=== PATIENT | female | born 1990 | race African-American/Black ===

== ENCOUNTER 2016-06-17 14:56 | Emergency (ER) | payer BC, OTHER ==
[2016-06-17 15:08] VITALS: BP 151/79; PULSE 108; TEMP 98; BMI 33.6
--- NOTE | 2016-06-17 17:59 | PDOC ---
History of Present Illness - General Chief Complaint: Shortness of Breath Stated Complaint: SOB Time Seen by Provider: 06/17/16 17:46 History Source: Patient Exam Limitations: No Limitations - History of Present Illness Initial Comments: 06/17/16 18:02 Agent is here with complaints of acute onset of shortness of breath. happens to her frequently, but today's episode seems to be much worse. has problems with postnasal drainage and symptoms appear to be worse while lying. On occasion feels is choking and wonders if this is part of her reason for waking with these "shortness of breath" episodes. is also been told had some mild panic disorder where these acute onset of shortness of breath have been associated. Has no history of cardiac disease, has never been evaluated for psychiatric or panic disorders, denies fever, ear or throat pain, denies cough. Has had no recent travel, does not take control, does not smoke or use drugs however is a social drinker 06/17/16 18:13 06/17/16 20:31 Timing/Duration: reports: just prior to arrival Severity: reports: moderate Possible Cause: Yes: occasional episodes ( has had multiple occasions of the same, has never had definitive diagnosis or treatment for same) Associated Symptoms: reports: denies symptoms, fever/chills Past History - Travel Traveled outside of the country in the last 30 days: No Close contact w/someone who was outside of country & ill: No - Past Medical History Allergies/Adverse Reactions: Allergies Allergy/AdvReac Type Severity Reaction Status Date / Time No Known Allergies Allergy Verified 06/17/16 15:05 Home Medications: Ambulatory Orders Albuterol Sulfate Inhaler - [Ventolin HFA Inhaler -] 2 inh PO Q4H PRN #1 inh Azithromycin [Zithromax Z-MASOOD (5 DAYS) -] 250 mg PO ASDIR #6 tablet 07/19/14 - Psycho/Social/Smoking Cessation Hx Anxiety: No Suicidal Ideation: No Smoking History: Never smoked Review of Systems - Review of Systems Able to Perform ROS?: Yes Is the patient limited Slovenian proficient: Yes Constitutional: Yes: Symptoms Reported, See HPI, Malaise HEENTM: Yes: Symptoms Reported, Nose Congestion, Difficulty Swallowing Respiratory: Yes: See HPI. No: Symptoms reported, Cough, Orthopnea, Shortness of Breath, Wheezing ABD/GI: Yes: See HPI. No: Symptoms Reported : Yes: See HPI. No: Symptoms Reported Musculoskeletal: Yes: See HPI Integumentary: Yes: See HPI. No: Symptoms Reported Neurological: Yes: See HPI. No: Symptoms reported, Headache, Numbness, Paresthesia Psychiatric: Yes: Anxiety (no medication) All Other Systems: Reviewed and Negative *Physical Exam - Vital Signs Last Vital Signs Temp Pulse Resp BP Pulse Ox 98 F 108 H 20 151/79 99 06/17/16 15:05 06/17/16 15:05 06/17/16 15:05 06/17/16 15:05 06/17/16 15:05 - Physical Exam General Appearance: Yes: Nourished, Appropriately Dressed. No: Apparent Distress HEENT: positive: URBANO, TMs Normal (congested but landmarks easily visualized), Nasal Congestion (the), Rhinorrhea. negative: Normal ENT Inspection, Pharynx Normal, Pharyngeal Erythema (has thick whitish clear posterior sinus drainage noted) Neck: positive: Tender, Supple. negative: Lymphadenopathy (R), Lymphadenopathy (L) Respiratory/Chest: positive: Lungs Clear, Normal Breath Sounds Cardiovascular: positive: Regular Rate Gastrointestinal/Abdominal: positive: Soft. negative: Normal Bowel Sounds, Tender Musculoskeletal: positive: Normal Inspection Extremity: positive: Normal Capillary Refill, Normal Inspection, Normal Range of Motion Integumentary: positive: Normal Color, Warm, Pale Neurologic: positive: ortho nurse II-XII NML intact, Fully Oriented, Normal Mood/Affect , Normal Response, Motor Strength 5/5 Progress Note - Progress Note Progress Note: Intermittent palpitations, spontaneous resolved. EKG negative, normal sinus rhythm without any ischemic changes or arrhythmias noted. Urine hCG is positive , patient notified and will follow-up with her PMD. Beta hCG pending but patient wish to stay for results *DC/Admit/Observation/Transfer Diagnosis at time of Disposition: at early stage - Discharge Dispostion Disposition: HOME Condition at time of disposition: Stable Admit: No - Patient Instructions Printed Discharge Instructions: DI for Abdominal Pain -- Early Additional Instructions: Rest, avoid heavy lifting or strenuous activity Fluids, No alcohol, or any other drugs [id number] medications until cleared by DrLeann - Post Discharge Activity Work/School Note: Back to Work
[2016-06-17 18:19] LABS: URINE APPEARANCE SLCLOUDY; URINE BILIRUBIN NEGATIVE (NEGATIVE); URINE BLOOD NEGATIVE (NEGATIVE); URINE COLOR YELLOW; URINE GLUCOSE (UA) NEGATIVE (NEGATIVE); URINE KETONE NEGATIVE (NEGATIVE); URINE LEUK ESTERASE NEGATIVE (NEGATIVE); URINE NITRITE NEGATIVE (NEGATIVE); URINE PROTEIN NEGATIVE (NEGATIVE); URINE UROBILINOGEN NEGATIVE E.U./dl (0.2-1.0)
--- NOTE | 2016-06-18 12:52 | EKG ---
Test Reason : Blood Pressure : / mmHG Vent. Rate : 095 BPM Atrial Rate : 095 BPM P-R Int : 126 ms QRS Dur : 070 ms QT Int : 364 ms P-R-T Axes : 061 062 013 degrees QTc Int : 457 ms NORMAL SINUS RHYTHM NORMAL ECG NO PREVIOUS ECGS AVAILABLE Confirmed by CARRIE HERNÁNDEZ MD ([id number]) on 06/18/2016 12:52:09 PM Referred By: Confirmed By:CARRIE HERNÁNDEZ MD
== END 2016-06-17 21:17 | disposition home or self-care (01) ==
LOC: JERFT 14:56 → JER 14:56 → JERFT 21:17
DX: O99.89 Other specified diseases and conditions complicating pregnancy, childbirth and the puerperium (principal); Z3A.01 Less than 8 weeks gestation of pregnancy
CPT/HCPCS: 36415; 81003; 84702; 84703; 93005; 93010; 99281-25

== ENCOUNTER 2017-08-13 14:32 | Emergency (ER) | payer BC, OTHER ==
--- NOTE | 2017-08-13 14:38 | PDOC ---
Rapid Medical Evaluation Chief Complaint: Pain, Acute Time Seen by Provider: 08/13/17 14:35 Medical Evaluation: Allergies Allergy/AdvReac Type Severity Reaction Status Date / Time No Known Allergies Allergy Verified 06/17/16 15:05 08/13/17 14:37 The patient presents with a chief complaint of: pelvis pain I have performed a brief in-person evaluation of this patient. Pertinent physical exam findings: vss, I have ordered the following: ua, urine , std screening The patient will proceed to the ED for further evaluation. 08/13/17 14:37
[2017-08-13 14:40] VITALS: TEMP 98.6; BMI 35.0
--- NOTE | 2017-08-13 15:27 | PDOC ---
History of Present Illness - General Chief Complaint: Pain Stated Complaint: ABD PAIN Time Seen by Provider: 08/13/17 14:35 History Source: Patient - History of Present Illness Timing/Duration: reports: other Quality: reports: cramping Abdominal Pain Onset Location: reports: suprapubic Past History - Past Medical History Allergies/Adverse Reactions: Allergies Allergy/AdvReac Type Severity Reaction Status Date / Time No Known Allergies Allergy Verified 08/13/17 14:35 Home Medications: Ambulatory Orders NK [No Known Home Medication] 08/13/17 COPD: No Other medical history: denies. - Suicide/Smoking/Psychosocial Hx Smoking History: Never smoked Review of Systems - Review of Systems Constitutional: No: Chills, Fever Respiratory: No: Shortness of Breath Cardiac (ROS): No: Chest Pain, Palpitations ABD/GI: Yes: Abdominal cramping. No: Nausea, Vomiting : No: Burning, Dysuria, Flank Pain, Hematuria *Physical Exam - Vital Signs Last Vital Signs Temp Pulse Resp BP Pulse Ox 98.6 F 108 H 19 159/101 97 08/13/17 14:36 08/13/17 14:36 08/13/17 14:36 08/13/17 14:36 08/13/17 14:36 - Physical Exam General Appearance: Yes: Appropriately Dressed. No: Apparent Distress HEENT: positive: Normal Voice Neck: positive: Supple Respiratory/Chest: negative: Respiratory Distress Female Pelvic Exam: positive: normal adnexa, discharge (small amount of brown discharge). negative: cervical os closed, lesions, adnexal tenderness Gastrointestinal/Abdominal: positive: Tender (to b/l suprapubic area) Musculoskeletal: negative: CVA Tenderness Extremity: positive: Normal Inspection Integumentary: positive: Dry, Warm Neurologic: positive: Fully Oriented, Alert, Normal Mood/Affect ED Treatment Course - LABORATORY CBC & Chemistry Diagram: 08/13/17 15:31 08/13/17 15:31 - RADIOLOGY Radiology Studies Ordered: Category Date Time Status PELVIS(OTHER) US [US] Stat Ultrasound 08/13/17 15:24 Ordered TRANSVAGINAL ULTRASOUND US [US] Stat Ultrasound 08/13/17 15:24 Ordered Medical Decision Making - Medical Decision Making 08/13/17 15:25 27-year-old female, , status post D&C 07/18/2017 at 12 weeks, and then took methotrexate 4 days ago per pt, scheduled for next f/u in 3 days but here for persistent pelvic pain x 1 month. States she had an ultrasound 2 days ago and was told she had possible blood clots in her uterus per patient. States she has not bled since procedure or pills. Patient not sure what her f/u betas have been. Denies vaginal discharge bleed, nausea, vomiting, fever, chills. Not taking anything for pain at home See exam Persistent pelvic pain x 1 month, s/p D&C and methotrexate for elective AB Possible blood clots on US 2 days ago per pt No vag bleed, dysuria, f/c Tachy to 108 but afebrile and well altaf w/ ttp to b/l suprapubic area and brown vag discharge in vault w/ closed os and no cmt/adnexal ttp -pain control -ua -US today -labs 08/13/17 16:06 Labs unremarkable, including a beta of 7.6. Ultrasound read as no uterine mass with thickened, irregular endometrium. Patient stable for discharge to take Motrin as needed and follow-up at her next scheduled appointment in 3 days *DC/Admit/Observation/Transfer Diagnosis at time of Disposition: Pelvic pain - Discharge Dispostion Disposition: HOME Condition at time of disposition: Good - Referrals - Patient Instructions Additional Instructions: The cause of your pelvic pain is most likely secondary to your recent elective . Your beta hCG was 7.6 today and there is no masses in your uterus. Your labs and urine were unremarkable Take Motrin as needed for pain and follow-up with her next scheduled appointment in 3 days - Post Discharge Activity Forms/Work/School Notes: Back to Work
[2017-08-13] MEDS ORDERED: IBUPROFEN 400 MG TABLET (FP) PO ONE ×2 (15:31→16:50)
[2017-08-13 15:40] LABS: BASO % 1.2 % (0-2.0); EOS % 1.3 % (0-4.5); HEMATOCRIT 39.5 % (32.4-45.2); HEMOGLOBIN 13.3 GM/dL (10.7-15.3); LYMPH % 20.9 % (8-40); MCH 28.3 pg (25.7-33.7); MCHC 33.7 g/dl (32.0-36.0); MEAN CELL VOLUME 83.8 fl (80-96); MEAN PLT VOLUME 7.9 fl (7.5-11.1); MONO % 9.2 % (3.8-10.2); NEUT % 67.4 % (42.8-82.8); PLATELET COUNT 226 K/MM3 (134-434); RBC 4.71 M/mm3 (3.60-5.2); RDW 14.4 % (11.6-15.6); WHITE BLOOD COUNT 4.6 K/mm3 (4.0-10.0)
[2017-08-13 16:05] LABS: ALK PHOS 81 U/L (45-117); ANION GAP 11 (8-16); BILIRUBIN,TOTAL 0.6 mg/dL (0.2-1.0); BLOOD UREA NITROGEN 15 mg/dL (7-18); CALCIUM 8.8 mg/dL (8.5-10.1); CHLORIDE 104 mmol/L (98-107); CO2 24 mmol/L (21-32); CREATININE 0.7 mg/dL (0.55-1.02); GLUCOSE,RANDOM 92 mg/dL (74-106); POTASSIUM 3.5 mmol/L (3.5-5.1); SGOT/AST 68 U/L (15-37); SGPT/ALT 83 U/L (12-78); SODIUM 139 mmol/L (136-145)
[2017-08-13] MEDS ORDERED: IBUPROFEN 600 MG TABLET (FP) PO ONE (16:46)
[2017-08-13 17:12] LABS: HCG,QUALITATIVE URINE NEGATIVE
[2017-08-13 17:14] LABS: URINE APPEARANCE CLEAR; URINE BILIRUBIN NEGATIVE (NEGATIVE); URINE BLOOD NEGATIVE (NEGATIVE); URINE COLOR COLORLESS; URINE GLUCOSE (UA) NEGATIVE (NEGATIVE); URINE KETONE NEGATIVE (NEGATIVE); URINE LEUK ESTERASE NEGATIVE (NEGATIVE); URINE NITRITE NEGATIVE (NEGATIVE); URINE PROTEIN NEGATIVE (NEGATIVE); URINE UROBILINOGEN NEGATIVE mg/dL (0.2-1.0)
[2017-08-13 17:23] VITALS: BP 144/97; PULSE 103
== END 2017-08-13 17:33 | disposition home or self-care (01) ==
LOC: JERFT 14:32
DX: R10.2 Pelvic and perineal pain (principal)
CPT/HCPCS: 36415; 76830-TC; 76856-TC; 80053; 81003; 84702; 84703; 85025; 87491; 87591; 99281-25

== ENCOUNTER 2018-10-31 12:23 | Emergency (ER) | payer OTHER | END 2018-10-31 15:20 | disposition home or self-care (01) | LOC: JER 12:23 ==

== ENCOUNTER 2019-02-22 09:43 | Day surgery (SDC) | payer OTHER ==
[2019-02-19 12:31] VITALS: BMI 35.4
[2019-02-22 11:14] LABS: BASO % 0.9 % (0-2.0); EOS % 3.2 % (0-4.5); HEMATOCRIT 38.1 % (32.4-45.2); HEMOGLOBIN 12.5 GM/dL (10.7-15.3); LYMPH % 29.2 % (8-40); MCH 27.5 pg (25.7-33.7); MCHC 32.9 g/dl (32.0-36.0); MEAN CELL VOLUME 83.5 fl (80-96); MONO % 9.4 % (3.8-10.2); NEUT % 57.3 % (42.8-82.8); PLATELET COUNT 228 K/MM3 (134-434); RBC 4.56 M/mm3 (3.60-5.2); RDW 14.1 % (11.6-15.6); WHITE BLOOD COUNT 4.1 K/mm3 (4.0-10.0)
[2019-02-22] MEDS ORDERED: ROCURONIUM BROMIDE 50 MG/5 ML SYRINGE ONE (12:14)
[2019-02-22] MEDS ORDERED: fentaNYL CITRATE 250 MCG/5 ML VIAL ONE (12:15)
[2019-02-22] MEDS ORDERED: MIDAZOLAM HCL 2 MG/2 ML SINGLE DOSE VIAL ONE (12:15)
[2019-02-22] MEDS ORDERED: ceFAZolin SODIUM 1 GM VIAL IVPB ONE (12:20)
[2019-02-22] MEDS ORDERED: PROPOFOL 20 ML ONE ×2 (12:23→12:24)
[2019-02-22] MEDS ORDERED: DEXAMETHASONE SOD PHOSPHATE 4 MG/1 ML VIAL ONE (12:41)
[2019-02-22] MEDS ORDERED: NEOSTIGMINE METHYLSULFATE 0.5 MG/ML - 10 ML MDV ONE ×2 (13:01→13:34)
[2019-02-22] MEDS ORDERED: GLYCOPYRROLATE 0.2 MG/1 ML VIAL ONE ×2 (13:01→13:34)
[2019-02-22] MEDS ORDERED: METHYLENE BLUE 50 MG/10 ML AMPUL NR ONE (13:15)
[2019-02-22] MEDS ORDERED: ONDANSETRON 4 MG/2 ML VIAL IVPUSH PRN (13:30)
[2019-02-22] MEDS ORDERED: ACETAMINOPHEN 1000 MG/100 ML VIAL (NON FORMULARY) IVPB PRN (13:30)
[2019-02-22] MEDS ORDERED: oxyCODONE HCL 5 MG TABLET PO PRN (13:30)
[2019-02-22] MEDS ORDERED: LACTATED RINGERS SOLUTION 1,000 ML IV SCH (13:30)
[2019-02-22] MEDS ORDERED: ACETAMINOPHEN INJECTION 100 ML IVPB ONE (13:44)
--- NOTE | 2019-02-22 13:44 | OP ---
Operative Note - Note: Operative Date: 02/22/19 Pre-Operative Diagnosis: Pelvic pain/ polycystic ovarian syndrome Operation: Exploratory laproscopy, ovarian drilling, laproscopic tubal patency test Post-Operative Diagnosis: Same as Pre-op Surgeon: Milton Morin Engineering Intern: Elvis Mosqueda Anesthesiologist/SOFTWOOD FALLER: Poly Otto Anesthesia: General Estimated Blood Loss (mls): 5 Operative Report Dictated: Yes
--- NOTE | 2019-02-22 13:51 | SURG ---
Surgery Manager Gas Note Manager Gas: Elvis Mosqueda PA-C Date of Service: 02/22/19 Diagnosis: Pelvic pain/ polycystic ovarian syndrome Procedure: Exploratory laproscopy, ovarian drilling, laproscopic tubal patency test I was present for the entirety of the operative procedure. For further detail, please refer to operative report. Visit type - Case Type Case Type: Scheduled - Emergency Emergency Visit: No - New patient This patient is new to me today: Yes Date on this admission: 02/22/19 - Critical Care Critical Care patient: No
[2019-02-22 16:18] VITALS: BP 135/65; PULSE 70; TEMP 98
--- NOTE | 2019-02-22 20:48 | OP ---
DATE OF OPERATION: 02/22/2019 PREOPERATIVE DIAGNOSES: 1. Chronic, intractable pelvic pain. 2. Polycystic ovarian syndrome. 3. Obesity. 4. Desire for in near future. POSTOPERATIVE DIAGNOSES: 1. Chronic, intractable pelvic pain. 2. Polycystic ovarian syndrome. 3. Obesity. 4. Desire for in near future. PROCEDURE: 1. Exploratory laparoscopy. 2. Drilling of polycystic ovaries. 3. Chromotubation. SURGEON: Gigi Morin MD COLD HEADER: TK ANESTHESIOLOGIST: SARAH Kaufman ANESTHESIA: General. PROCEDURE AND FINDINGS: Under general anesthesia, in dorsal lithotomy position, patient was examined. Vulvar and vaginal prep was carried out. Bladder was emptied, and HUMI uterine manipulator was placed in the uterus. Abdomen was prepped and draped for the laparoscopy. Peritoneal cavity was entered through infraumbilical incision, 5 mm, with Veress needle and insufflation with carbon dioxide was carried out. Trocar, 5 mm, was entered into the abdominal cavity. Under direct laparoscopic vision with the 5-mm scope with 30-degree angle, second trocar to the left of the umbilicus was placed. Uterus was manipulated and bowel was pushed cephalad. There was absolutely no pathology noted other than clearly polycystic ovaries. Tubes were within normal limits. So was the uterus. There was no evidence of endometriosis, adhesions, or any other pathology. Most thorough examination failed to produce any significant findings. Ovaries, on the other hand, were enlarged, pearly white with multiple follicles under the surface. Decision was then made to perform ovarian drilling. Monopolar hook attached to 30-degree cutting as well as coagulation current was entered into the abdomen. Multiple follicles on both ovaries were drained, visibly decreasing size of either ovary. There was no bleeding from the drilling, and multiple follicles were drained. Ovaries were then totally examined, and there was no bleeding whatsoever. Using saline with small amount of methylene blue in a large syringe, chromotubation was carried out. Very easy, immediate and bilateral spill was noted from both fimbriated ends. This was very satisfactory. Pelvis and remainder of the abdomen were then carefully examined again. There was no bleeding or any other pathology noted. Procedure was completed. Gas was allowed to escape from the abdomen. Both ports were removed under direct vision. Incisions were closed with Dermabond. Patient was transferred to PACU awake, stable, and comfortable. GIGI MORIN MD [id number]
== END 2019-02-22 16:15 | disposition home or self-care (01) ==
LOC: JASU-SURG 09:43
PROVIDERS: ATTEND Specialist
PROC: 0UJ34ZZ Inspection of Ovary, Percutaneous Endoscopic Approach (ICD-10-PCS; 2019-02-22)
PROC: 3E1P88X Irrigation of Female Reproductive using Irrigating Substance, Via Natural or Artificial Opening Endoscopic, Diagnostic (ICD-10-PCS; principal; 2019-02-22 12:00)
DX: E28.2 Polycystic ovarian syndrome (principal); E66.09 Other obesity due to excess calories; R10.2 Pelvic and perineal pain
CPT/HCPCS: 36415; 84702; 85025; J0131

== ENCOUNTER 2019-07-26 19:10 | Emergency (ER) | payer OTHER ==
[2019-07-26 19:44] VITALS: BP 141/98; PULSE 86; TEMP 98.1; BMI 33.6
--- NOTE | 2019-07-26 19:46 | PDOC ---
Rapid Medical Evaluation Time Seen by Provider: 07/26/19 19:41 Medical Evaluation: Allergies Allergy/AdvReac Type Severity Reaction Status Date / Time No Known Allergies Allergy Verified 02/22/19 10:54 07/26/19 19:41 This patient had a brief medical evaluation in triage cc: pelvic pain since January HPI: Patient reports s/p laproscopic cyst removal and since procedure in January with pelvic pain states feels as if something is moving inside. Taking naproxen with no relief of symptoms PE: appears well unlabored breathing non tender abdomen Orders: urine hcg This patient will proceed to main ed for further evaluation Discharge Disposition - Diagnosis Pelvic pain - Referrals - Patient Instructions - Post Discharge Activity
--- NOTE | 2019-07-26 20:58 | PDOC ---
Attending Attestation - Resident Resident Name: Ct [facility] - ED Attending Attestation I have performed the following: I have examined & evaluated the patient, The case was reviewed & discussed with the resident, I agree w/resident's findings & plan - HPI HPI: 07/27/19 01:42 see resident hpi - Physicial Exam PE: 07/27/19 01:42 see resident exam - Medical Decision Making 07/27/19 01:42 29-year-old female with history of polycystic ovaries now with pelvic pain CT scan of the abdomen and pelvis and transvaginal ultrasound performed with no significant acute findings Patient seen by her FINISHING LAB TECHNICIAN in the emergency department who will follow-up outpatient Pelvic exam was unremarkable for signs of infection Will DC
--- NOTE | 2019-07-26 21:06 | PDOC ---
History of Present Illness <Jhonathan Savage - Last Filed: 07/27/19 01:27> - History of Present Illness Initial Comments: 07/26/19 21:17 29 y/o F with PCOS syndrome s/p exlap and cyst drainage who presents to the ED for recurrent pelvic pain x1 day. Pain is throbbing, constant, non radiating and associated with chills, nausea and one episode of NBND vomiting. Pt also noted some mild enlargement/swelling of her right groin. Pt denies any fever, chest pain, change in urination or bowel movement. Pt also c/o vaginal spotting but explains that it is a chronic issue as she doesnt get normal period with her PCOS with last LMP 6 months ago. Pt is on OCPs which she endorsed adherence to. She also takes naproxen daily however she has run out of it and has not taken any today. PMH: as above PSH: as above social hx: denies ROS: Constitutional: no fever, chills HEENT: no throat pain, no dysphagia Cardiovascular: no chest pain, no palpitations Respiratory: no cough, no shortness of breath Gastrointestinal: Nausea and vomiting Genitourinary: no frequency no urgency Musculoskeletal: no myalgia, no arthralgia Skin: no bruising Neurologic: no weakness Psych: no agitation, no anxiety PE: VSS GEN: mild distress Neuro: CN 2-12 intact, motor strength 5/5 in all muscle groups, sensation intact throughout, 2+ reflexes in U&L extremities, gait normal HEENT: PERRLA, moist membrane, clear conjunctiva NECK: no JVD CHEST:vesicular breath sounds b/l no wheezing, no rales appreciated HEART:RRR, no murmur, rubs or gallop ABDOMEN: + BS, soft, RLQ tenderness Extremities: 2+ pulses, no edema SKIN: intact, warm and dry, mild swelling in the R groin MSK: no arthralgia, no joint tenderness assessment: based on HPI, PE DDX include: ruptured cyst, ovarian torsion, appendicitis, inguinal/fermoral hernia ( given complaints of swelling in the groin) plan: CBC, CMP, UA, Urine culture, urine preg, drug screen, transvaginal US, CT A/P with IV contrast 1L NS, 1gm tylenol IV, 30mg toradol IV Dr Morin was in ED and saw pt and agreed to see pt and to put consult in 07/26/19 21:49 CBC WBC 3.9 K/mm3 (4.0-10.0) L 07/26/19 21:45 RBC 4.62 M/mm3 (3.60-5.2) 07/26/19 21:45 Hgb 13.0 GM/dL (10.7-15.3) 07/26/19 21:45 Hct 39.3 % (32.4-45.2) 07/26/19 21:45 MCV 85.2 fl (80-96) 07/26/19 21:45 MCH 28.2 pg (25.7-33.7) 07/26/19 21:45 MCHC 33.1 g/dl (32.0-36.0) 07/26/19 21:45 RDW 13.6 % (11.6-15.6) 07/26/19 21:45 MPV 8.8 fl (7.5-11.1) 07/26/19 21:45 Absolute Neuts (auto) 1.8 K/mm3 (1.5-8.0) 07/26/19 21:45 Neutrophils % 46.3 % (42.8-82.8) 07/26/19 21:45 Lymphocytes % 36.6 % (8-40) D 07/26/19 21:45 Monocytes % 10.2 % (3.8-10.2) 07/26/19 21:45 Eosinophils % 5.4 % (0-4.5) H 07/26/19 21:45 Basophils % 1.5 % (0-2.0) 07/26/19 21:45 Nucleated RBC % 0 % (0-0) 07/26/19 21:45 mild leukopenia 07/26/19 22:24 UA negative for infection Upreg negative cmp pending 07/26/19 22:54 no acute pathology on transvaginal US 07/26/19 23:29 CMP Sodium 138 mmol/L (136-145) 07/26/19 21:45 Potassium 3.6 mmol/L (3.5-5.1) 07/26/19 21:45 Chloride 100 mmol/L (98-107) 07/26/19 21:45 Carbon Dioxide 30 mmol/L (21-32) 07/26/19 21:45 Anion Gap 8 MMOL/L (8-16) 07/26/19 21:45 BUN 18.4 mg/dL (7-18) H 07/26/19 21:45 Creatinine 0.8 mg/dL (0.55-1.3) 07/26/19 21:45 Est GFR (CKD-EPI)AfAm 116.28 07/26/19 21:45 Est GFR (CKD-EPI)NonAf 100.33 07/26/19 21:45 Random Glucose 84 mg/dL (74-106) 07/26/19 21:45 Calcium 9.5 mg/dL (8.5-10.1) 07/26/19 21:45 Total Bilirubin 0.7 mg/dL (0.2-1) 07/26/19 21:45 AST 50 U/L (15-37) H 07/26/19 21:45 ALT 51 U/L (13-61) 07/26/19 21:45 Alkaline Phosphatase 83 U/L (45-117) 07/26/19 21:45 Total Protein 7.6 g/dl (6.4-8.2) 07/26/19 21:45 Albumin 3.9 g/dl (3.4-5.0) 07/26/19 21:45 mild AST elevation otherwise unremarkable 07/26/19 23:29 Utox only positive for marijuana 07/26/19 23:[address] negative for acute pathology <Ct Lima - Last Filed: 07/28/19 19:07> - General Chief Complaint: Pain, Acute Stated Complaint: ABD PAIN Time Seen by Provider: 07/26/19 19:41 Past History <Jhonathan Savage - Last Filed: 07/27/19 01:27> - Past Medical History Anemia: No Asthma: No Cancer: No Cardiac Disorders: No CVA: No COPD: No CHF: No Dementia: No Diabetes: No GI Disorders: No Disorders: No HTN: No Hypercholesterolemia: No Liver Disease: No Seizures: No Thyroid Disease: No - Surgical History Abdominal Surgery: Yes (UNSURE OF SX) - Immunization History Immunization Up to Date: Yes - Psycho Social/Smoking Cessation Hx Smoking History: Never smoked Have you smoked in the past 12 months: No Hx Alcohol Use: No Drug/Substance Use Hx: No <Ct Lima - Last Filed: 07/28/19 19:07> - Past Medical History Allergies/Adverse Reactions: Allergies Allergy/AdvReac Type Severity Reaction Status Date / Time No Known Allergies Allergy Verified 07/26/19 19:41 Home Medications: Ambulatory Orders Naproxen 500 mg PO BID 07/26/19 Norethindrone-E.estradiol-Iron [Junel Fe 1 mg-20 Mcg Tablet] 1 tab PO DAILY 07/15 *Physical Exam - Vital Signs Last Vital Signs Temp Pulse Resp BP Pulse Ox 98.1 F 86 20 141/98 100 07/26/19 19:42 07/26/19 19:42 07/26/19 19:42 07/26/19 19:42 07/26/19 19:42 - Physical Exam 07/27/19 01:24 GENERAL: Awake, alert, and fully oriented, in no acute distress HEAD: No signs of trauma, normocephalic, atraumatic EYES: PERRLA, EOMI, sclera anicteric, conjunctiva clear ENT: Auricles normal inspection, hearing grossly normal, nares patent, oropharynx clear without exudates. Moist mucosa NECK: Normal ROM, supple, no lymphadenopathy, JVD, or masses LUNGS: No distress, speaks full sentences, clear to auscultation bilaterally HEART: Regular rate and rhythm, normal S1 and S2, no murmurs, rubs or gallops, peripheral pulses normal and equal bilaterally. ABDOMEN: + LLQ abdomen ttp. Neg CVA ttp. Soft, NDS, normoactive bowel sounds. No guarding, no rebound. No masses GENITOURINARY: Nml appearing external genitalia, with absent lesions. Vaginal vault without blood, or discharge. Cervical os closed. Neg CMT on BM. Neg adenexal ttp, or mass palpated.Chaperoned by SADIE Quevedo. Performed by Dr. Savage. EXTREMITIES : Normal inspection, Normal range of motion, no edema. No clubbing or cyanosis NEUROLOGICAL: Cranial nerves II through XII grossly intact. Normal speech, normal gait, no focal sensorimotor deficits SKIN: Warm, Dry, normal turgor, no rashes or lesions noted <Jhonathan Savage - Last Filed: 07/27/19 01:27> - Vital Signs Last Vital Signs Temp Pulse Resp BP Pulse Ox 98.1 F 86 20 141/98 100 07/26/19 19:42 07/26/19 19:42 07/26/19 19:42 07/26/19 19:42 07/26/19 19:42 <Ct Lima - Last Filed: 07/28/19 19:07> ED Treatment Course - LABORATORY CBC & Chemistry Diagram: 07/26/19 21:45 07/26/19 21:45 - ADDITIONAL ORDERS Additional order review: Laboratory Results 07/26/19 07/26/19 07/26/19 21:45 21:45 21:45 Sodium Potassium Chloride Carbon Dioxide Anion Gap BUN Creatinine Est GFR (CKD-EPI)AfAm Est GFR (CKD-EPI)NonAf Random Glucose Calcium Total Bilirubin AST ALT Alkaline Phosphatase Total Protein Albumin Urine Color Yellow Urine Appearance Clear Urine pH 6.0 Ur Specific [place] 1.026 Urine Protein Negative Urine Glucose (UA) Negative Urine Ketones 1+ H Urine Blood Negative Urine Nitrite Negative Urine Bilirubin Negative Urine Urobilinogen 1.0 Ur Leukocyte Esterase Negative Urine HCG, Qual Negative Opiates Screen Negative Methadone Screen Negative Barbiturate Screen Negative Phencyclidine Screen Negative Ur Amphetamines Screen Negative MDMA (Ecstasy) Screen Negative Benzodiazepines Screen Negative Cocaine Screen Negative U Marijuana (THC) Screen Positive A* 07/26/19 21:45 Sodium 138 Potassium 3.6 Chloride 100 Carbon Dioxide 30 Anion Gap 8 BUN 18.4 H Creatinine 0.8 Est GFR (CKD-EPI)AfAm 116.28 Est GFR (CKD-EPI)NonAf 100.33 Random Glucose 84 Calcium 9.5 Total Bilirubin 0.7 AST 50 H ALT 51 Alkaline Phosphatase 83 Total Protein 7.6 Albumin 3.9 Urine Color Urine Appearance Urine pH Ur Specific [place] Urine Protein Urine Glucose (UA) Urine Ketones Urine Blood Urine Nitrite Urine Bilirubin Urine Urobilinogen Ur Leukocyte Esterase Urine HCG, Qual Opiates Screen Methadone Screen Barbiturate Screen Phencyclidine Screen Ur Amphetamines Screen MDMA (Ecstasy) Screen Benzodiazepines Screen Cocaine Screen U Marijuana (THC) Screen 07/26/19 21:45 RBC 4.62 MCV 85.2 MCHC 33.1 RDW 13.6 MPV 8.8 Neutrophils % 46.3 Lymphocytes % 36.6 D Monocytes % 10.2 Eosinophils % 5.4 H Basophils % 1.5 - RADIOLOGY Radiology Studies Ordered: 07/27/19 01:27 Patient Information: : 1990 Order Type: Preliminary Name: MARLEN APONTE Sex: F Study Description: CT ABDOMEN AND PELVIS Modality: CT Location: [facility] Referring Physician: TIMOTHY STEWART Comments: Jp Dodd MD wrote on Jul 26, 2019 at 11:59 PM: Referring Physician: TIMOTHY STEWART Patient Name: FAY GEE THIS IS A PRELIMINARY REPORT FROM [facility] DATE OF SERVICE: 2019-07-26 23:25:06 IMAGES: [id number] EXAM: CT abdomen and pelvis with contrast HISTORY: Inguinal hernia COMPARISON: None. FINDINGS: No bowel obstruction or inflammation. Negative for diverticulitis or colitis. No right or left inguinal hernias are identified. Normal kidneys urinary tracts and urinary bladder. Study liver. Normal spleen. No obvious gallbladder abnormalities. Normal pancreas. Normal adrenal glands. CONFIDENTIALITY NOTICE: This information is intended only for the use of the recipient(s) named above. If you are not the intended recipient, or a person responsible for delivering it to the intended recipient, you are hereby notified that any disclosure, copying, distribution or use of any of the information contained in or attached to this transmission is STRICTLY PROHIBITED. If you have received this transmission in error, please immediately notify Imaging Conservation Engineer and destroy the original transmission and its attachments without saving them in any manner [address] [facility] [address] [place] [address] Phone: [phone] ([phone]) Fax: Email: [email or web address] Patient Information: : 1990 Order Type: Preliminary Name: MARLEN APONTE Sex: F Study Description: CT ABDOMEN AND PELVIS Modality: CT Location: [facility] Referring Physician: TIMOTHY STEWART Osseous structures are intact. One or more of the following dose reduction techniques were used: automated exposure control, adjustment of the mA and/or kV according to patient size, use of iterative reconstructive technique. THIS DOCUMENT HAS BEEN ELECTRONICALLY SIGNED Jp Dodd MD 07/26/2019 23:58 EST M.D. Please call Imaging Conservation Engineer [phone] ([phone]) with questions. Jp Dodd MD Clinicians - Please contact Imaging Conservation Engineer with further questions - Medications Given in the ED: ED Medications Discontinued Medications Generic Name Dose Route Start Last Admin Trade Name Marcy PRN Reason Stop Dose Admin Acetaminophen 1,000 mg 07/26/19 21:14 07/26/19 22:00 Ofirmev Injection - IVPB 07/26/19 21:15 1,000 mg ONCE ONE Administration Ketorolac Tromethamine 30 mg 07/26/19 21:14 07/26/19 22:00 Toradol Injection - IVPUSH 07/26/19 21:15 30 mg ONCE ONE Administration Oxycodone/Acetaminophen 1 combo 07/27/19 00:21 07/27/19 01:02 Percocet 5/325 - PO 07/27/19 00:22 1 combo ONCE ONE Administration <Jhonathan Savage - Last Filed: 07/27/19 01:27> - LABORATORY CBC & Chemistry Diagram: 07/26/19 21:45 07/26/19 21:45 <Ct Lima - Last Filed: 07/28/19 19:07> Medical Decision Making - Medical Decision Making Patient CTAP, and TVUS unremarkable 07/27/19 01:25 Patient stable for d/c with return precautions. Advised to f/u Compliance Assistant Dr. Reyes <Jhonathan Savage - Last Filed: 07/27/19 01:27> - Medical Decision Making 07/26/19 23:33 29 y/o F with PCOS coming in for pelvic pain. Pt has a history of chronic pain syndrome usually managed with naproxen. Also c/p groin swelling. In the setting of chronic pain syndrome , symptomatic relief s/p IV tylenol and toradol, negative transvaginal US, pt most likely experiencing another episode of Chronic pain syndrome. However , will wait for CT finding to r/o other intraabdominal processes such as hernia, appendicitis. Pt is to f/o with her [employer] Ground Operations Supervisor Dr Morin who is already aware of her. Informed patient with stritct return instructions if she was to develop new or worsening symptoms. 07/27/19 00:10 <Ct Lima - Last Filed: 07/28/19 19:07> Discharge - Admission No <Jhonathan Savage - Last Filed: 07/27/19 01:27> - Discharge Information Problems reviewed: Yes - Admission No <Ct Lima - Last Filed: 07/28/19 19:07> - Discharge Information Clinical Impression/Diagnosis: Pelvic pain Condition: Improved Disposition: HOME - Follow up/Referral Referrals: Sandeep Randall MD [Staff Physician] - Call tomorrow Milton Morin MD [Staff Physician] - Call tomorrow - Patient Discharge Instructions Patient Printed Discharge Instructions: Polycystic Ovary Syndrome, Chronic Pelvic Pain-Female Additional Instructions: You came to the Emergency room because of pelvic pain. We tested your blood and your urine which came back normal. We also did a test and a transvaginal US which was negative for acute findings. We also scanned your abdomen which was also negative for hernia or any abnormalities in the groin We gave you some pain medication and your symptoms improved. You are stable for discharge with close follow up with your [employer] Operations Supervisor Doctor Dr Morin as well call the PCP office referred to you in order to start primary care and for better outpatient pain control If you begin to experience worsening abdominal pain, fever, chills, bleeding, or new symptoms, please return to the emergency room immediately
[2019-07-26] MEDS ORDERED: ACETAMINOPHEN 1000 MG/100 ML VIAL (NON FORMULARY) IVPB ONE (21:14)
[2019-07-26] MEDS ORDERED: KETOROLAC TROMETHAMINE 30 MG/1 ML VIAL IVPUSH ONE (21:14)
[2019-07-26] MEDS ORDERED: KETOROLAC TROMETHAMINE 30 MG/1 ML VIAL ONE (21:52)
[2019-07-26] MEDS ORDERED: ACETAMINOPHEN INJECTION 100 ML IVPB ONE (21:52)
[2019-07-26 22:13] LABS: BASO % 1.5 % (0-2.0); EOS % 5.4 % (0-4.5); HEMATOCRIT 39.3 % (32.4-45.2); LYMPH % 36.6 % (8-40); MCH 28.2 pg (25.7-33.7); MCHC 33.1 g/dl (32.0-36.0); MEAN CELL VOLUME 85.2 fl (80-96); MEAN PLT VOLUME 8.8 fl (7.5-11.1); MONO % 10.2 % (3.8-10.2); NEUT % 46.3 % (42.8-82.8); RBC 4.62 M/mm3 (3.60-5.2); RDW 13.6 % (11.6-15.6); WHITE BLOOD COUNT 3.9 K/mm3 (4.0-10.0)
[2019-07-26 22:35] LABS: URINE APPEARANCE CLEAR; URINE BILIRUBIN NEGATIVE (NEGATIVE); URINE COLOR YELLOW; URINE GLUCOSE (UA) NEGATIVE (NEGATIVE); URINE KETONE 1+ (NEGATIVE); URINE LEUK ESTERASE NEGATIVE (NEGATIVE); URINE NITRITE NEGATIVE (NEGATIVE); URINE PROTEIN NEGATIVE (NEGATIVE)
[2019-07-26 22:39] LABS: PLATELET COUNT 178 K/MM3 (134-434); PLATELET ESTIMATE DECREASED
[2019-07-26 23:17] LABS: ALBUMIN 3.9 g/dl (3.4-5.0); BILIRUBIN,TOTAL 0.7 mg/dL (0.2-1); BLOOD UREA NITROGEN 18.4 mg/dL (7-18); CALCIUM 9.5 mg/dL (8.5-10.1); COCAINE, UR NEGATIVE ng/ml (CUTOFF=300); CREATININE 0.8 mg/dL (0.55-1.3); METHADONE, UR NEGATIVE ng/ml (CUTOFF=300); OPIATES, URI NEGATIVE ng/ml (CUTOFF=300); PHENCYCLIDINE,URINE NEGATIVE ng/ml (CUTOFF=25); POTASSIUM 3.6 mmol/L (3.5-5.1); TOT PROT 7.6 g/dl (6.4-8.2); URINE AMPHETAMINES NEGATIVE ng/ml (CUTOFF=500); URINE BARBITURATES NEGATIVE ng/ml (CUTOFF=200); URINE BENZODIAZEPINES NEGATIVE ng/ml (CUTOFF=200)
--- NOTE | 2019-07-27 10:38 | CONS ---
DATE OF CONSULTATION: DATE OF DICTATION: 07/26/2019 HISTORY: Patient is a 29-year-old black female known to me who went to emergency department with complaint of low abdominal pain. FIXED INCOME ANALYST consultation was requested by Dr. Horan. Patient is para 0. Her low pelvic pain is a recurrent complaint, which required several emergency department visits in the past. I was following it through my practice, and patient underwent exploratory laparoscopy in the fall of 2018. At that time, in spite of her complaints, her findings were completely negative. Patient has polycystic ovaries, which were drilled. Her tubes were patent. She remained symptom free for well after the surgery. Polycystic ovary syndrome was discussed with her, and various methods were offered. Patient states that naproxen works very well, but she ran out of it. Discussed with the emergency room department providers. Transvaginal sonogram and lab work will be ordered. PHYSICAL EXAMINATION: General: A somewhat obese black female in what appears to be minimal distress. Abdomen: Soft, obese, and nontender. There is no rebound, guarding, or pain on deep palpation. There is some pain in the right, and to a lesser extent, left groin area. Pelvic: Deferred. IMPRESSION: Low abdominal pain. It is a recurrent, chronic, intractable complaint. PLAN: Lab work, transvaginal sonogram, and pain medication will be used. Once the pain is under better control, she might be discharged. I will follow her through my office as well. In view of the location of the pain, especially on the right side, I strongly recommended consultation with General Surgery. I am sure Dr. Lucas would not mind seeing her and rule out possibility of inguinal, femoral, or other form of hernia that might be causing the pain. I could not palpate any, but patient is somewhat obese, and examination is limited. Discussed with the emergency room provider, patient's mother, and patient. Thank you for the courtesy of this consultation. GIGI CLAIRE MD [id number]
== END 2019-07-27 01:42 | disposition home or self-care (01) ==
LOC: JER 19:10
PROC: 3E033NZ Introduction of Analgesics, Hypnotics, Sedatives into Peripheral Vein, Percutaneous Approach (ICD-10-PCS; principal; 2019-07-26)
PROC: 3E0333Z Introduction of Anti-inflammatory into Peripheral Vein, Percutaneous Approach (ICD-10-PCS; 2019-07-26)
DX: R10.2 Pelvic and perineal pain (principal); G89.29 Other chronic pain; E28.2 Polycystic ovarian syndrome; Z98.890 Other specified postprocedural states
CPT/HCPCS: 36415; 74177-TC; 76830-TC; 80053; 80307; 81003; 84703; 85025; 87086; 96374; 96375; 99285-25; J0131

== ENCOUNTER 2021-02-21 14:29 | Emergency (ER) | payer OTHER ==
[2021-02-21 14:41] VITALS: BP 132/94; PULSE 95; TEMP 98; BMI 36.3
[2021-02-21 15:37] LABS: EPI CELLS 33 /uL (0-25.1); HYALINE CASTS 2 /uL (0-3.1); PH,URINE 8.5 (5.0-8.0); URINE APPEARANCE CLEAR; URINE BACTERIA 115 /uL (0-1359); URINE BILIRUBIN 1+ (NEGATIVE); URINE COLOR DK YELLOW; URINE GLUCOSE (UA) NEGATIVE (NEGATIVE); URINE KETONE 2+ (NEGATIVE); URINE LEUK ESTERASE TRACE (NEGATIVE); URINE NITRITE NEGATIVE (NEGATIVE); URINE PROTEIN TRACE (NEGATIVE); URINE RBC 12 /uL (0-23.9); URINE WBC 8 /uL (0-25.8)
[2021-02-21 15:38] LABS: HCG,QUALITATIVE URINE Negative
[2021-02-21 15:49] LABS: BASO % 1.1 % (0-2.0); EOS % 1.2 % (0-4.5); HEMATOCRIT 38.1 % (32.4-45.2); HEMOGLOBIN 12.9 GM/dL (10.7-15.3); LYMPH % 27.9 % (8-40); MCH 27.8 pg (25.7-33.7); MCHC 33.9 g/dl (32.0-36.0); MEAN CELL VOLUME 82.1 fl (80-96); MEAN PLT VOLUME 7.9 fl (7.5-11.1); MONO % 9.8 % (3.8-10.2); PLATELET COUNT 311 10^3/uL (134-434); RBC 4.64 M/mm3 (3.60-5.2); RDW 13.4 % (11.6-15.6); WHITE BLOOD COUNT 5.6 K/mm3 (4.0-10.0)
[2021-02-21] MEDS ORDERED: KETOROLAC TROMETHAMINE 30 MG/1 ML VIAL IM ONE (16:11)
[2021-02-21] MEDS ORDERED: KETOROLAC TROMETHAMINE 30 MG/1 ML VIAL ONE (16:29)
[2021-02-21 16:35] LABS: ALBUMIN 3.8 g/dl (3.4-5.0)
[2021-02-21 16:36] LABS: BLOOD UREA NITROGEN 9.7 mg/dL (7-18); CALCIUM 8.8 mg/dL (8.5-10.1)
[2021-02-21 16:39] LABS: CREATININE 0.8 mg/dL (0.55-1.3)
[2021-02-21 16:40] LABS: BILIRUBIN,TOTAL 1.1 mg/dL (0.2-1); TOT PROT 8.2 g/dl (6.4-8.2)
== END 2021-02-21 18:45 | disposition home or self-care (01) ==
LOC: JER 14:29
PROC: 3E0233Z Introduction of Anti-inflammatory into Muscle, Percutaneous Approach (ICD-10-PCS; principal; 2021-02-21)
DX: N83.201 Unspecified ovarian cyst, right side (principal)
CPT/HCPCS: 36415; 76830-TC; 80053; 81003; 84703; 85025; 87086; 96372; 99284-25

== ENCOUNTER 2022-03-19 22:33 | Emergency (ER) | payer OTHER ==
[2022-03-19 22:50] VITALS: BP 132/82; PULSE 105; RESP 19; TEMP 98.6; BMI 31.8
[2022-03-19] MEDS ORDERED: ACETAMINOPHEN 500 MG TABLET (FP) PO ONE (23:30)
[2022-03-19] MEDS ORDERED: ACETAMINOPHEN 325 MG TABLET (FP) ONE (23:42)
[2022-03-20] MEDS ORDERED: oxyCODONE HCL 5 MG TABLET PO ONE (00:09)
[2022-03-20] MEDS ORDERED: oxyCODONE HCL 5 MG TABLET ONE (00:15)
[2022-03-20 00:24] LABS: BASO % 0.4 % (0-2.0); EOS % 1.2 % (0-4.5); HEMATOCRIT 38.1 % (32.4-45.2); HEMOGLOBIN 12.8 GM/dL (10.7-15.3); LYMPH % 42.5 % (8-40); MCH 27.7 pg (25.7-33.7); MCHC 33.5 g/dl (32.0-36.0); MEAN CELL VOLUME 82.6 fl (80-96); MEAN PLT VOLUME 7.3 fl (7.5-11.1); MONO % 5.1 % (3.8-10.2); NEUT % 50.8 % (42.8-82.8); PLATELET COUNT 317 10^3/uL (134-434); RBC 4.61 M/mm3 (3.60-5.2); RDW 13.6 % (11.6-15.6); WHITE BLOOD COUNT 5.9 K/mm3 (4.0-10.0)
[2022-03-20 00:43] LABS: CALCIUM 8.2 mg/dL (8.5-10.1)
[2022-03-20 00:44] LABS: ALBUMIN 3.7 g/dl (3.4-5.0); BLOOD UREA NITROGEN 15.4 mg/dL (7-18)
[2022-03-20 00:47] LABS: CREATININE 0.6 mg/dL (0.55-1.3)
[2022-03-20 00:48] LABS: BILIRUBIN,TOTAL 0.4 mg/dL (0.2-1); TOT PROT 7.6 g/dl (6.4-8.2)
[2022-03-20] MEDS ORDERED: morphine CARPU-JECT 4 MG/1 ML DISP.SYRIN IVPUSH ONE (02:53)
[2022-03-20] MEDS ORDERED: morphine SULFATE 4 MG/ML VIAL ONE (02:54)
[2022-03-20] MEDS ORDERED: KETOROLAC TROMETHAMINE 15 MG/ML VIAL IVPUSH ONE (04:43)
[2022-03-20] MEDS ORDERED: KETOROLAC TROMETHAMINE 15 MG/ML VIAL ONE (04:51)
== END 2022-03-20 06:04 | disposition home or self-care (01) ==
LOC: JER 22:33
PROC: 3E033GC Introduction of Other Therapeutic Substance into Peripheral Vein, Percutaneous Approach (ICD-10-PCS; principal; 2022-03-19)
DX: N83.202 Unspecified ovarian cyst, left side (principal); N94.6 Dysmenorrhea, unspecified
CPT/HCPCS: 36415; 74177-TC; 76830-TC; 80053; 84703; 85025; 99285-25; Q9967

== ENCOUNTER 2022-10-18 05:17 | Emergency (ER) | payer OTHER ==
[2022-10-18 05:26] VITALS: BP 144/100; PULSE 88; TEMP 98; BMI 34.5
[2022-10-18] MEDS ORDERED: ACETAMINOPHEN 500 MG TABLET (FP) PO ONE (05:46)
[2022-10-18] MEDS ORDERED: ACETAMINOPHEN 325 MG TABLET (FP) ONE (06:19)
== END 2022-10-18 07:08 | disposition home or self-care (01) ==
LOC: JER 05:17
DX: S99.921A Unspecified injury of right foot, initial encounter (principal); M79.604 Pain in right leg; M79.671 Pain in right foot; V48.4XXA Person boarding or alighting a car injured in noncollision transport accident, initial encounter; Y93.02 Activity, running; Y92.009 Unspecified place in unspecified non-institutional (private) residence as the place of occurrence of the external cause
CPT/HCPCS: 72170-TC-FY; 73552-TC-RT-FY; 73562-TC-RT-FY; 73590-TC-RT-FY; 73630-TC-RT-FY; 99283-25

== ENCOUNTER 2023-07-21 02:35 | Emergency (ER) | payer OTHER ==
[2023-07-21 03:00] VITALS: BMI 33.6
[2023-07-21] MEDS ORDERED: ACETAMINOPHEN INJECTION 100 ML IVPB ONE (03:24)
[2023-07-21 03:35] LABS: BASO % 1.1 % (0-2.0); EOS % 2.1 % (0-4.5); HEMATOCRIT 40.5 % (32.4-45.2); HEMOGLOBIN 13.6 GM/dL (10.7-15.3); MCH 28.1 pg (25.7-33.7); MCHC 33.6 g/dl (32.0-36.0); MEAN CELL VOLUME 83.6 fl (80-96); MEAN PLT VOLUME 7.9 fl (7.5-11.1); MONO % 11.3 % (3.8-10.2); NEUT % 59.5 % (42.8-82.8); PLATELET COUNT 216 10^3/uL (134-434); RBC 4.84 M/mm3 (3.60-5.2); RDW 14.4 % (11.6-15.6); WHITE BLOOD COUNT 5.1 K/mm3 (4.0-10.0)
[2023-07-21 03:45] LABS: INR 1.09 (0.83-1.09); PROTHROMBIN TIME (PATIENT) 12.6 SEC (9.7-13.0)
[2023-07-21 03:47] LABS: ACTIVATED PTT 30.6 SECONDS (25.2-36.5)
[2023-07-21] MEDS: ACETAMINOPHEN 1000 MG/100 ML BAG IVPB ONE (03:47)
[2023-07-21 03:51] LABS: POTASSIUM 3.9 mmol/L (3.5-5.1)
[2023-07-21 03:53] LABS: CALCIUM 8.7 mg/dL (8.5-10.1)
[2023-07-21 03:54] LABS: ALBUMIN 3.6 g/dl (3.4-5.0); BLOOD UREA NITROGEN 15.4 mg/dL (7-18)
[2023-07-21 03:57] LABS: CREATININE 0.7 mg/dL (0.55-1.3)
[2023-07-21 03:59] LABS: BILIRUBIN,TOTAL 0.9 mg/dL (0.2-1); TOT PROT 7.9 g/dl (6.4-8.2)
[2023-07-21 04:03] LABS: N-TERMINAL BNP 13.8 pg/ml (5-125)
[2023-07-21] MEDS: morphine CARPU-JECT 2 MG/1 ML DISP.SYRIN IVPUSH ONE (04:46)
[2023-07-21 05:53] VITALS: BP 134/93; PULSE 84; RESP 21; TEMP 97.9
== END 2023-07-21 07:40 | disposition home or self-care (01) ==
LOC: JER 02:35
PROC: 3E033NZ Introduction of Analgesics, Hypnotics, Sedatives into Peripheral Vein, Percutaneous Approach (ICD-10-PCS; principal; 2023-07-21)
DX: R07.9 Chest pain, unspecified (principal); M54.9 Dorsalgia, unspecified; R20.2 Paresthesia of skin; R00.0 Tachycardia, unspecified; Z20.822 Contact with and (suspected) exposure to COVID-19
CPT/HCPCS: 0241U-QW; 36415; 71045-TC-FY; 71275-TC; 74174-TC; 80053; 83690; 83880; 84484; 84703; 85025; 85610; 85730; 93005; 93010; 99285-25; J0131; Q9967

== ENCOUNTER 2023-09-23 00:03 | Emergency (ER) | payer OTHER ==
[2023-09-23 00:10] VITALS: BP 131/87; PULSE 102; RESP 18; TEMP 98.7; BMI 33.6
[2023-09-23] MEDS ORDERED: IBUPROFEN 400 MG TABLET (FP) PO ONE (00:39)
[2023-09-23] MEDS: IBUPROFEN 400 MG TABLET (FP) PO ONE (01:01)
[2023-09-23 01:18] LABS: THROAT:GRP A STREP NOT DETECTED (NOTDETECTED)
[2023-09-23] MEDS ORDERED: PENICILLIN G BENZATHINE 1,200,000 UNIT/2 ML PFS IM ONE (01:44)
[2023-09-23] MEDS ORDERED: DEXAMETHASONE SOD PHOSPHATE 10 MG/1 ML VIAL ONE (01:44)
[2023-09-23] MEDS: PENICILLIN G BENZATHINE 1,200,000 UNIT/2 ML PFS IM ONE (01:55)
[2023-09-23] MEDS: DEXAMETHASONE SOD PHOSPHATE 10 MG/1 ML VIAL IM ONE (01:55)
== END 2023-09-23 03:03 | disposition home or self-care (01) ==
LOC: JER 00:03
PROC: 3E023GC Introduction of Other Therapeutic Substance into Muscle, Percutaneous Approach (ICD-10-PCS; principal; 2023-09-23)
PROC: 3E02329 Introduction of Other Anti-infective into Muscle, Percutaneous Approach (ICD-10-PCS; 2023-09-23)
DX: J02.9 Acute pharyngitis, unspecified (principal); R22.0 Localized swelling, mass and lump, head; R50.9 Fever, unspecified; Z20.822 Contact with and (suspected) exposure to COVID-19
CPT/HCPCS: 0241U-QW; 84703; 87070; 87077; 87651; 99284-25; J1100